=== PATIENT | male | born 1995 | race African-American/Black ===

== ENCOUNTER 2017-06-19 10:25 | Outpatient (CLI) | END 2017-06-19 10:26 | disposition home or self-care (01) | LOC: LAB 10:25 | PROVIDERS: ATTEND Emergency Medicine | DX: R31.0 Gross hematuria (principal); R10.32 Left lower quadrant pain | CPT/HCPCS: 36415; 80053; 81001; 85025; 87086 ==

== ENCOUNTER 2018-08-31 16:35 | Outpatient (CLI) | END 2018-08-31 16:36 | disposition home or self-care (01) | LOC: LAB 16:35 | PROVIDERS: ATTEND Nurse Practitioner Family | DX: R30.0 Dysuria (principal); Z20.2 Contact with and (suspected) exposure to infections with a predominantly sexual mode of transmission | CPT/HCPCS: 36415; 81001; 86592; 87800 ==